=== PATIENT | female | born 1965 | race African-American/Black ===

== ENCOUNTER 2018-08-10 09:42 | Day surgery (SDC) | payer OTHER ==
[2018-08-10 13:12] VITALS: BP 114/76
== END 2018-08-10 12:20 | disposition home or self-care (01) | DRG 951 ==
LOC: ENDO 09:42
PROVIDERS: ATTEND Surgery
PROC: 0DJD8ZZ Inspection of Lower Intestinal Tract, Via Natural or Artificial Opening Endoscopic (ICD-10-PCS; principal; 2018-08-10)
DX: Z12.11 Encounter for screening for malignant neoplasm of colon (principal)